=== PATIENT | male | born 1985 | race Two or more races ===

== ENCOUNTER 2016-09-12 14:01 | Emergency (ER) | payer OTHER ==
[~2016-09-12] VITALS: Ht 160 cm; Wt 95.3 kg
[2016-09-12] MEDS ORDERED: NKM (14:18)
[2016-09-12] MEDS ORDERED: Ketorolac 60mg Inj IM ONE (14:45)
[2016-09-12] MEDS ORDERED: Norco 7.5mg/325mg tab ORAL ONE (14:45)
--- NOTE | 2016-09-12 14:47 | Emergency Room Report ---
History of Present Illness General Chief Complaint: Multiple Trauma/Fall Present Illness HPI 30-year-old male presents emergency department complaining of left-sided back pain and in addition to the left forearm pain status post mechanical slip and fall while at work today. Patient states he slipped at the bottom of the stairs and fell onto his left arm and left back. Patient denies hitting his head or losing consciousness. Patient reports bruising and swelling to the left forearm. Patient denies elbow pain or decreased mobility. Patient denies midline back pain, incontinence, or paresthesias. Patient denies previous injury to the affected extremities.Denies numbness tingling or loss of sensation or gross motor movements of the extremities, incontinence of bowel or bladder. Denies CP, Palpitations, LOC, AMS, dizziness, Changes in Vision, Sensation, paresthesias, or a sudden severe headache. Allergies: Coded Allergies: No Known Allergies (Verified Allergy, Mild, 10/21/06) Patient History Past Medical History: see triage record Past Surgical History: none Pertinent Family History: none Immunizations: UTD Reviewed Nursing Documentation: PMH: Agreed, PSxH: Agreed Review of Systems All Other Systems: negative except mentioned in HPI Physical Exam Vital Signs Date Time Temp Pulse Resp B/P Pulse Ox O2 Delivery O2 Flow Rate FiO2 09/12/16 14:13 98.2 88 16 147/88 97 Room Air Sp02 EP Interpretation: reviewed, normal General Appearance: no apparent distress, alert, GCS 15, non-toxic Head: normocephalic, atraumatic Eyes: bilateral eye PERRL, bilateral eye normal inspection ENT: hearing grossly normal, normal pharynx, no angioedema, normal voice Neck: full range of motion, no meningismus, no bony tend, supple/symm/no masses Respiratory: chest non-tender, lungs clear, normal breath sounds, speaking full sentences Cardiovascular #1: regular rate, rhythm, no edema Gastrointestinal: non tender, soft, no guarding, no rebound Rectal: deferred Genitourinary: normal inspection, no CVA tenderness Musculoskeletal: back normal, gait/station normal, normal range of motion, no calf tenderness, tender - Left sided TTP, no midline spinal TTP, mild right paraspinal TTP, no bruises noted, no erythema. Neurologic: alert, oriented x3, responsive, motor strength/tone normal, sensory intact, speech normal Psychiatric: judgement/insight normal, memory normal, mood/affect normal, no suicidal/homicidal ideation Reflexes: 4+ bicep (R), 4+ bicep (L), 4+ tricep (R), 4+ tricep (L), 4+ knee (R) , 4+ knee (L) Skin: normal color, no rash, warm/dry, well hydrated Lymphatic: no adenopathy Medical Decision Making PA Attestation Dr. Mayfield is my supervising Physician whom patient management has been discussed with. Diagnostic Impression: Primary Impression: Forearm contusion Qualified Codes: S50.12XA - Contusion of left forearm, initial encounter Additional Impression: Contusion of back Qualified Codes: S20.222A - Contusion of left back wall of thorax, initial encounter ER Course Pt. presents to the ED c/o left-sided low back pain and left forearm pain status post mechanical slip and fall. -Negative LOC, no midline tenderness Ddx considered but are not limited to Fracture, dislocation, contusion, Sprain/ Strain/Spasm Vital signs: are WNL, pt. is afebrile H&PE are most consistent with contusion we'll rule out fractures are imaging ORDERS: - X-ray of Left forearm 2 views - negative for fx, Dislocation, or significant soft tissue injury, per preliminary read in ED by Dr. Oneal ED INTERVENTIONS: - 7.5 [place] PO DISCHARGE: At this time pt. is stable for d/c to home. Will provide printed patient care instructions, and any necessary prescriptions. Care plan and follow up instructions have been discussed with the patient prior to discharge. Last Vital Signs Date Time Temp Pulse Resp B/P Pulse Ox O2 Delivery O2 Flow Rate FiO2 09/12/16 14:13 98.2 88 16 147/88 97 Room Air Disposition: HOME, SELF-CARE Condition: Stable Scripts Cyclobenzaprine Hcl* (FLEXERIL*) 10 Mg Tablet 10 MG ORAL THREE TIMES A DAY, #20 TAB Prov: Alize Bello P.A. 09/12/16 Ibuprofen* (MOTRIN*) 600 Mg Tablet 600 MG ORAL THREE TIMES A DAY, #30 TAB 0 Refills Prov: Alize Bello P.A. 09/12/16 Patient Instructions: Contusion Additional Instructions: Take medications as directed. Follow up with PCP in 3-5 days Return sooner to ED if new symptoms occur, or current symptoms become worse. Do not drink alcohol, drive, or operate heavy machinery while taking Flexeril as this may cause drowsiness. Alize Bello. Sep 12, 2016 14:47
[2016-09-12 14:49] VITALS: BP 147/88
[2016-09-12] MEDS ORDERED: CYCLOBENZAPRINE10 MG ORAL (15:33)
[2016-09-12] MEDS ORDERED: IBUPROFEN600 MG ORAL (15:33)
--- NOTE | 2016-09-12 15:43 | Diagnostic Imaging Report ---
Indication: Pain Findings: 2 views of the left forearm were obtained. No acute fractures, malalignment, erosions or periostitis are identified. Bone mineralization is within normal limits. Soft tissues are unremarkable. Impression: Negative examination of the forearm.
[2016-09-12 15:46] VITALS: BP 131/81
== END 2016-09-12 15:54 | disposition home or self-care (01) ==
LOC: EMR 14:15
DX: S20.222A Contusion of left back wall of thorax, initial encounter (principal); S50.12XA Contusion of left forearm, initial encounter; W10.9XXA Fall (on) (from) unspecified stairs and steps, initial encounter; Y92.9 Unspecified place or not applicable; Y99.0 Civilian activity done for income or pay
CPT/HCPCS: 96372; 99283